=== PATIENT | female | born 2005 | race Hispanic/Latino ===

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

== ENCOUNTER 2023-01-31 14:03 | Emergency (ER) | payer MEDICAID ==
[~2023-01-31] VITALS: Ht 167.6 cm; Wt 77.1 kg
[~2023-01-31 14:03] MED LIST changes: +AMOX500C2 PO
[2023-01-31 15:07] VITALS: BP 125/78
[2023-01-31 15:37] LABS: HCG,QUALITATIVE URINE NEGATIVE (NEGATIVE)
[2023-01-31 15:41] LABS: APPEARANCE,URINE TURBID (CLEAR); BACTERIA,URINE MANY /HPF (None Seen); BILIRUBIN,URINE NEGATIVE (NEGATIVE); COLOR,URINE DARK-YELLOW (YELLOW); GLUCOSE, URINE (UA) NEGATIVE (NEGATIVE); KETONES,URINE 5 mg/dL (NEGATIVE); LEUKOCYTE ESTERASE ,URINE 500 Leu/uL (NEGATIVE); MUCUS,URINE MANY LPF (None Seen); NITRATE,URINE 1+ (NEGATIVE); OCCULT BLOOD,URINE MODERATE (NEGATIVE); PH,URINE 7.5 (5.0-8.0); PROTEIN,URINE 200 mg/dL (NEGATIVE); RBC,URINE TNTC /HPF (0-1); SQUAMOUS EPITHELIAL CELL,UR MANY /HPF (0-2); UROBILINOGEN,URINE 0.2 mg/dL (0.2-1.0); WBC,URINE TNTC /HPF (0-1)
[2023-01-31] MEDS ORDERED: CEFTRIAXONE 1G VIAL IM ONE (16:00)
[2023-01-31] MEDS ORDERED: PHEN-847 PO (16:19)
[2023-01-31] MEDS ORDERED: CEPH500B PO (16:19)
== END 2023-01-31 16:25 | disposition home or self-care (01) ==
LOC: EDH 14:03
DX: N39.0 Urinary tract infection, site not specified (principal); J45.909 Unspecified asthma, uncomplicated
CPT/HCPCS: 99283; 87077; 87088; 87186; 81001; 81025; 96372; J0696

== ENCOUNTER 2024-01-15 12:20 | Emergency (ER) | payer MEDICAID, OTHER ==
[~2024-01-15] VITALS: Ht 167.6 cm; Wt 80.7 kg
[~2024-01-15 12:20] MED LIST changes: +CEPH500B PO; +PHEN-847 PO
[2024-01-15 12:25] VITALS: BP 127/76; PULSE 110; RESP 16
[2024-01-15] MEDS ORDERED: CETI-89 PO (13:15)
[2024-01-15] MEDS ORDERED: FAMO-136 PO (13:15)
[2024-01-15] MEDS ORDERED: METH4TAB3 PO (13:15)
[2024-01-15] MEDS: FAMOTIDINE 20MG TAB PO ONE (13:21)
[2024-01-15] MEDS: SOLU-MEDROL 125MG VIAL IM ONE (13:21)
[2024-01-15] MEDS: CETIRIZINE HCL 5 MG TABLET PO SCH (13:43)
[2024-01-15] MEDS: CETIRIZINE HCL 5 MG TABLET PO ONE (13:44)
== END 2024-01-15 13:49 | disposition home or self-care (01) ==
LOC: EDH 12:20
DX: R21 Rash and other nonspecific skin eruption (principal); L29.9 Pruritus, unspecified; J45.909 Unspecified asthma, uncomplicated
CPT/HCPCS: 99283; 96372; J2919